=== PATIENT | female | born 1995 | race Caucasian/White ===

== ENCOUNTER 2019-04-25 10:01 | Emergency (ER) | payer OTHER ==
[~2019-04-25] VITALS: Ht 157.5 cm; Wt 98.9 kg
[2019-04-25] MEDS ORDERED: MULTTAB20 PO (10:08)
[2019-04-25] MEDS ORDERED: NS 1,000 ML IV ONE (10:45)
[2019-04-25] MEDS ORDERED: METOCLOPRAMIDE INJ 10MG/2ML VIAL (J2765) IV ONE (10:45)
[2019-04-25] MEDS ORDERED: MACR100C43 PO (12:39)
[2019-04-25] MEDS ORDERED: REGL10TA6 PO (12:39)
[2019-04-25 13:02] VITALS: BP 119/59
== END 2019-04-25 13:04 | disposition home or self-care (01) ==
LOC: M ED 10:01
DX: O21.9 Vomiting of pregnancy, unspecified (principal); O23.41 Unspecified infection of urinary tract in pregnancy, first trimester; Z3A.10 10 weeks gestation of pregnancy; Z79.899 Other long term (current) drug therapy; Z88.0 Allergy status to penicillin; Z88.2 Allergy status to sulfonamides; Z88.8 Allergy status to other drugs, medicaments and biological substances
CPT/HCPCS: 81001; 87086; 96361; 96374; 99284; J2765

== ENCOUNTER 2019-08-22 20:31 | Outpatient (CLI) | payer OTHER ==
[~2019-08-22] VITALS: Ht 157.5 cm; Wt 100.2 kg
[~2019-08-22 20:31] MED LIST: MACR100C43 PO; MULTTAB20 PO; REGL10TA6 PO
[2019-08-22 20:55] VITALS: BP 128/76
[2019-08-22 21:41] VITALS: BP 113/71
[2019-08-22] MEDS ORDERED: ASPI81TA85 PO (22:57)
--- NOTE | 2019-08-23 07:01 | HPE ---
DATE OF ADMISSION: 08/22/2019 This lady is a 23-year-old 2, para 0, 1, last menstrual period (LMP) 02/12/2019, estimated date of confinement (EDC) 11/19/2019 at 28 weeks of gestation, went to [facility] to take her blood pressure and found it to be elevated. Risk factors she has a BMI of 37.9, anxiety sufferer, midrange blood pressures and cannot rule out gestational hypertension. Also cannot rule out gestational diabetes as she did her 1-hour glucose and it was 139 and there was no followup. She could not tolerate 3-hour GTT. PAST HISTORY: In 2013 had a spontaneous . LABORATORY DATA: A positive. HIV negative. Hepatitis negative. RPR negative. Rubella immune. Varicella immune. Pap normal. Urine negative. Gonorrhea and chlamydia are negative. 1-hour glucose 139. Blood pressure presently is 113/71, respirations 18, pulse 86, temperature 98.1. Redo of blood pressure is 128/76. She has a category 1 strip. No contractions, moderate variability, baseline was normal. Symphysis fundus height is 28 weeks and bowel sounds are normal. No vaginal bleeding or discharge. No contractions are noted. No right upper quadrant pain, migraines or edema. The rest of the examination was unremarkable. Normocephalic, atraumatic. Neck full range of motion. Pupils equal and react to light. Distal pulses are symmetric. No evidence of deep vein thrombosis (DVT), pulmonary embolism (PE), or superficial phlebitis. Chest was clear bilaterally to the bases. No wheezes or rhonchi. No CVA tenderness. No rashes, lesions or pruritus. No arthralgia, myalgia. No complaint joint pain. No complaint cough, wheeze, shortness of breath or dyspnea on exertion. No frequency. No diabetic issues other than her 1-hour sugar was 139. She is not on a diet regime or on oral hypoglycemics. Our plan of management is to reassure her blood pressures are normal, monitor them in the clinic. She has had two midrange blood pressures which did not meet the criteria for gestational hypertension. Continue keeping her appointments. She was discharged undelivered. We did insurance counselor her regarding getting an appropriate blood pressure machine for herself to monitor her blood pressures, and ones that include heart rate, blood pressure and monitor if there is abnormal cardiac activity. We discharged her with the instructions she could go to [facility] and pick that up or she can continue monitoring in the clinic. The patient was discharged undelivered.
== END 2019-08-22 22:39 | disposition home or self-care (01) ==
LOC: M LDO 20:31
PROVIDERS: ATTEND Obstetrics & Gynecology
DX: O26.893 Other specified pregnancy related conditions, third trimester (principal); Z3A.28 28 weeks gestation of pregnancy; R03.0 Elevated blood-pressure reading, without diagnosis of hypertension
CPT/HCPCS: G0378; G0463

== ENCOUNTER 2019-10-25 17:22 | Outpatient (CLI) | payer OTHER ==
[~2019-10-25] VITALS: Ht 157.5 cm; Wt 105.5 kg
[~2019-10-25 17:22] MED LIST changes: +ASPI81TA85 PO
[2019-10-25 18:02] VITALS: BP 126/68
--- NOTE | 2019-10-25 18:48 | IPNPDOC ---
Text Note Date of Service The patient was seen on 10/25/19. NOTE S: Ms. Montano is a 24yo at 36+3wks by LMP who presents to LND triage with c/o decreased FM. She reports that she has not felt movement since 1100 this morning. She did contact the OB clinic triage line and used the advice they suggested, but she states that she still does not feel any movement. She denies VB/CTX/LOF. Ms. Montano's is complicated by obesity. O: VSS FHR 135, moderate variability, + accels, no decels CTX: None TAUS: + FM observed, + cardiac activity, VTX MIYA: 9.02, WNL Pt was positioned to right side during NST and she felt multiple movements. A: Reactive NST, MIYA WNL, Reassuring status P: Discharged home with PTL/danger precautions Discussed [facility] instructions f/u [id number] for next JANNY or sooner PRN Growth US scheduled for [id number] VS,Fishbone, I+O VS, Fishbone, I+O Vital Signs Date Time Temp Pulse Resp B/P (MAP) Pulse Ox O2 Delivery O2 Flow Rate FiO2 10/25/19 18:02 98.2 89 18 126/68 (87) CAMILA LUBIN CNM Oct 25, 2019 18:48
== END 2019-10-25 18:39 | disposition home or self-care (01) ==
LOC: M LDO 17:22
PROVIDERS: ATTEND Registered Nurse Maternal Newborn
DX: O36.8130 Decreased fetal movements, third trimester, not applicable or unspecified (principal); O99.210 Obesity complicating pregnancy, unspecified trimester; E66.9 Obesity, unspecified; Z3A.36 36 weeks gestation of pregnancy
CPT/HCPCS: 59025; 76815; G0378; G0463

== ENCOUNTER 2019-11-22 21:25 | Outpatient (CLI) | payer OTHER ==
[~2019-11-22] VITALS: Ht 157.5 cm; Wt 107.0 kg
[2019-11-22 21:45] VITALS: BP 125/64
[2019-11-22] MEDS ORDERED: PEPC1TAB5 PO (21:51)
[2019-11-22] MEDS ORDERED: TUMS500C PO (21:51)
--- NOTE | 2019-11-23 00:01 | HPE ---
DATE OF ADMISSION: 11/22/2019 A 24-year-old 2, para 0, abortio 1, last menstrual period (LMP) 02/12/2019, estimated date of confinement (EDC) 11/19/2019 at 40 and 3, came in with abdominal pain, was significantly severe but by 1 hour had resolved. No vaginal bleeding or loss or contractions. Risk factors: Body mass index (BMI) is 40 and she is in early term gestation. PAST HISTORY: 2014 spontaneous . LABORATORY: A positive, HIV negative, hepatitis negative, RPR negative, rubella immune, varicella immune. Pap normal. Urine negative. Gonorrhea and chlamydia are negative. 1-hour glucose was 139, her 3-hour GTT fasting was 88, 1-hour 166, 2-hour 120, and 3 hours 112. GBS is negative. On examination, no distress. Symphysis fundus height is 40, vertex. Pelvic examination: High, posterior, fingertip dilated. No vaginal bleeding or loss. Blood pressure 125/64, respirations 18, pulse 90,and temperature is 96.8. We have a lady who had intermittent abdominal pain which has resolved. Precautions were given, kick chart, premature rupture of membranes and bleeding. The patient was discharged, booked for induction of labor on Tuesday.
== END 2019-11-22 23:28 | disposition home or self-care (01) ==
LOC: M LDO 21:25
PROVIDERS: ATTEND Obstetrics & Gynecology
DX: O26.893 Other specified pregnancy related conditions, third trimester (principal); Z3A.40 40 weeks gestation of pregnancy; R10.9 Unspecified abdominal pain; O48.0 Post-term pregnancy; Z88.0 Allergy status to penicillin; Z88.2 Allergy status to sulfonamides; Z88.8 Allergy status to other drugs, medicaments and biological substances
CPT/HCPCS: 59025; G0378; G0463

== ENCOUNTER 2019-11-23 02:06 | Inpatient (IN) | payer OTHER ==
[~2019-11-23] VITALS: Ht 157.5 cm; Wt 107.0 kg
[2019-11-23] VITALS (29 sets, daily range): BP systolic 103–146; BP diastolic 56–81
[~2019-11-23 02:06] MED LIST changes: +PEPC1TAB5 PO; +TUMS500C PO
[2019-11-23] MEDS ORDERED: LACTATED RINGER'S 1000 ML IV STA (04:16)
[2019-11-23] MEDS: LR 1,000 ML IV SCH ×2 (04:50→05:17)
[2019-11-23] MEDS ORDERED: LACTATED RINGER'S 1000 ML IV ONE (06:45)
[2019-11-23 06:54] LABS: HEMATOCRIT 42.8 % (36.0-47.0); HEMOGLOBIN 13.7 g/dl (12.0-15.5); MEAN CORPUSCULAR HEMOGLOBIN 28.5 pg (27.0-33.0); PLATELET COUNT, AUTOMATED 267 10^3/uL (150-450); RED BLOOD COUNT 4.81 10^6/uL (4.00-5.40); WHITE BLOOD COUNT 15.9 10^3/uL (4.0-10.0)
[2019-11-23] MEDS ORDERED: miSOPROStol 25 MCG 1/4 TAB (S0191) PV ONE (09:00)
[2019-11-23] MEDS ORDERED: BUTORPHANOL 2 MG/ML INJ (J0595) IV PRN (10:00)
[2019-11-23] MEDS ORDERED: PROMETHAZINE INJ 25 MG/ML VIAL (J2550) IV ONE (10:00)
--- NOTE | 2019-11-23 10:16 | HPE ---
DATE OF ADMISSION: 11/23/2019 23-year-old, 2, para 2, abortus 1, last menstrual period (LMP) 02/12/2019, estimated date of confinement (EDC) 11/19/2019. She is at 40 weeks and 3 days of gestation. She was previously seen less than 24 hours ago because of abdominal pain, which subsequently resolved and she went home. She came back with more acute abdominal pain, but at this time, she said she has been trying to have a bowel movement for over an hour an a half and it is stuck and will not come out. She came in wearing a diaper because she was afraid she was going to poop. She also was having severe abdominal pain, sweating, holding her abdomen. She denied any vaginal loss or bleeding, and she denied any contractions or decreased movement. The diagnosis at that of time was that she is having obstipation requires bowel evacuation. The risk factor she has she has a BMI of greater than 40 and she is post dates of 40 and 3 of gestation. Her past history, in 2013 had a spontaneous . Labs are A+, HIV negative, hep negative, RPR negative, rubella immune. Varicella immune. Pap normal. Urine negative. Gonorrhea and chlamydia are negative. 1 hour glucose was 139. Her 3 hour GTT 86/166/120/112. GBS is negative. On examination, symphysis fundus height is 40, vertex not dilated. She has a category 2 strip and had occasional late deceleration but returned to baseline, and had some episodes of minimal variability and moderate variability requiring IV hydration and resuscitation for the baby. Blood pressure is 133/85, respirations are 18, pulse is 75 and temperature is 96.8. The rest of the examination is unremarkable. She is normocephalic, atraumatic. Neck full range of motion. Pupils equal and reactive to light. Distal pulses are symmetric. No evidence of deep venous thrombosis (DVT), pulmonary embolism (PE) or superficial phlebitis. Chest is clear bilaterally to bases. No wheezes or rhonchi. No costovertebral angle (CVA) tenderness. Abdomen soft, four quadrant bowel sounds were reduced. Category 2 strip. She has no rashes, lesions or pruritus. No arthralgia or myalgia. No complaint of joint pain. No complaint of cough, wheeze. shortness of breath or dyspnea on exertion. No nausea or vomiting. She has constipation but no diarrhea. She is not diabetic and she has no heat or cold sensitivities. 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 Past medical and surgical is noncontributory. Family history is noncontributory. She does not smoke, drink, abuse drugs or vape. She is to a soldier and there is no domestic violence. We discussed the consent for vaginal delivery and the etiology, delivery through the vagina with possible assistance of forceps or vacuum which are instruments to help deliver baby when normal pushing efforts cannot achieve delivery on their own or when delivery is needed in emergency for baby's well-being, medications that require to induce or augment labor, in order to achieve vaginal delivery episiotomy may be required to help baby deliver vaginally, you may also require repair of any lacerations or tears of the vagina or vulva that are caused with vaginal delivery, in some cases emergencies arise which we need an emergency section. The provider will discuss the reasons for emergency section and they are only done for or maternal indications. Risk of vaginal delivery include not limited bleeding, infection, injury to the vagina, pelvic structures, injury to baby, damage to the uterus, reaction to anesthesia, uterine rupture, risk of hysterectomy which is remote for intractable bleeding or , medications used to induce or augment labor, increase risk of section infection, uterine tachysystole, uterine rupture, heart rate abnormalities and the need for emergency section. There is an increased risk also of perineal and vaginal lacerations, risk of bowel or bladder incontinence, increased risk of injury to baby with bruising, scratches, hematomas of the head or intracranial bleed. The patient expressed understanding and verbalized so. We also discussed the fact that she has been required a Fleet enema in order to evacuate her bowel and after which we will evaluate the heart rate pattern. resuscitation measures include oxygen, position and IV fluids. Our impression is with a category 2 strip the possibility of the placenta being in a position where it is not able to tolerate labor and baby will demonstrate that with category 3 or nonreassuring heart tones and the possibility of having a section may be high. We also discussed the use of oxytocin as a contraction stress test in order to evaluate the integrity of the placenta for ongoing labor, with the cervix being unfavorable the possibility of Cytotec may be entertained if contraction stress test is negative. In summary, we have a late term gestation with obstipation and a category 2 heart strip.
[2019-11-23] MEDS ORDERED: FAMOTIDINE 20 MG TAB PO ONE (13:00)
[2019-11-23] MEDS ORDERED: miSOPROStol 50 MCG 1/2 TAB (S0191) PO SCH (13:00)
--- NOTE | 2019-11-23 17:44 | IPNPDOC ---
Text Note Date of Service The patient was seen on 11/23/19. NOTE Intrapartum Note I assumed care of Ebony at 0730 this morning. In brief, she is a 24yo with SIUP at 40w4d who presented overnight with difficulty effecting a BM and pain related to that. She was given an enema and had relief. However, over a period of time she was noted by Dr. Perry to have a Cat II FHRT. Given her gestational age, he made the recommendation for IOL which I began when I saw Ebony this morning around 0800. At that time SCE was 2-3/50/-2 and I performed cervical sweep and placed 25mcg cytotec PV. She then received a dose of 50mcg cytotec PO 4 hours later around 1300. Over the course of the day she has had a Cat I FHRT. She has been up to walk a few times. Presently, she notes only a feeling of some light uterine cramping. She has not requested any pain medications. Vitals are wnl, afebrile Cat I FHRT w/bl 140, +accels, -decels, mod steve Primrose: ctx q3-5min SCE: 4/75/-2, AROM performed with modest clear fluid noted Will initiate pitocin and titrate per protocol, closely observe Plan to recheck in 4-6hr or earlier as indicated Safe to proceed Dr. Olivia Eric MD VS,Tom, I+O VSTom I+O Laboratory Tests 11/23/19 04:21 Vital Signs Date Time Temp Pulse Resp B/P (MAP) Pulse Ox O2 Delivery O2 Flow Rate FiO2 11/23/19 17:01 98.1 73 18 116/60 (78) Olivia Eric MD Nov 23, 2019 17:44
[2019-11-23] MEDS ORDERED: OXYTOCIN DRIP 30 UNITS in IV 1 EA IV SCH (17:45)
[2019-11-23] MEDS ORDERED: FENTANYL 2MCG/ML ROPIVACAINE 0.2% IN 0.9% NACL 100ML IVBAG As Ordered ONE (19:41)
[2019-11-23] MEDS ORDERED: LACTATED RINGER'S 1000 ML IV PRN (19:46)
[2019-11-23] MEDS ORDERED: diphenhydrAMINE INJ 50MG/ML VIAL (J1200) IV PRN (19:46)
[2019-11-23] MEDS ORDERED: EPIDURAL/PCA KEYS XX PRN (19:46)
[2019-11-23] MEDS ORDERED: FENTANYL/ROPIVACAINE/NACL BAG 100 ML EPIDURAL SCH (19:46)
[2019-11-23] MEDS ORDERED: NALOXONE INJ 0.4 MG/1 ML VIAL (J2310) IV PRN (19:46)
[2019-11-23] MEDS ORDERED: ONDANSETRON 4MG/2ML VIAL (J2405) IV PRN (19:46)
[2019-11-23] MEDS ORDERED: ePHEDrine SULFATE 25 MG/5 ML(5MG/ML) SYRINGE IV PRN (19:46)
[2019-11-23] MEDS ORDERED: REFRIGERATOR IV KEYS XX PRN (19:46)
[2019-11-23] MEDS ORDERED: EPIDURAL COMMENT XX SCH (19:46)
[2019-11-24] VITALS (13 sets, daily range): BP systolic 99–131; BP diastolic 56–76
[2019-11-24] MEDS ORDERED: fentaNYL 100 MCG/2 ML INJECTION (J3010) As Ordered ONE (00:48)
[2019-11-24] MEDS ORDERED: LIDOCAINE 2% W/EPIN INJ 20ML **PRES FREE As Ordered ONE (00:48)
[2019-11-24] MEDS ORDERED: ONDANSETRON 4MG/2ML VIAL (J2405) As Ordered ONE (00:48)
[2019-11-24] MEDS ORDERED: AZITHROMYCIN INJ 500MG VIAL (J0456) As Ordered ONE (01:11)
[2019-11-24] MEDS ORDERED: CLINDAMYCIN 900 MG/50 ML PREMIX BAG As Ordered ONE (01:12)
[2019-11-24] MEDS ORDERED: BICITRA 30ML SOLN UDC PO ONE (01:15)
[2019-11-24] MEDS ORDERED: GENTAMICIN 160 MG in D5W 50 ML IV ONE (01:15)
[2019-11-24] MEDS ORDERED: CLINDAMYCIN 900 MG in IV 1 EA IV ONE (01:15)
[2019-11-24] MEDS ORDERED: AZITHROMYCIN INJ 500 MG, VIAL MATE ADAPTER 1 EACH in D5W 250 ML IV ONE (01:15)
[2019-11-24] MEDS ORDERED: BICITRA 30ML SOLN UDC As Ordered ONE (01:19)
[2019-11-24] MEDS ORDERED: ONDANSETRON 4MG/2ML VIAL (J2405) IV PRN ×2 (01:45→04:30)
[2019-11-24] MEDS ORDERED: diphenhydrAMINE INJ 50MG/ML VIAL (J1200) IV PRN (01:45)
[2019-11-24] MEDS ORDERED: METOCLOPRAMIDE INJ 10MG/2ML VIAL (J2765) IV PRN ×2 (01:45→04:30)
[2019-11-24] MEDS ORDERED: NALOXONE INJ 0.4 MG/1 ML VIAL (J2310) IV PRN ×2 (01:45)
[2019-11-24] MEDS ORDERED: NALBUPHINE HCL 10 MG/ML AMP (J2300) IV PRN (01:45)
[2019-11-24] MEDS ORDERED: PHENYLephrine HCL 500 MCG/5 ML (100MCG/ML) SYRINGE (J2370) As Ordered ONE (02:32)
[2019-11-24] MEDS ORDERED: MORPHINE PRES-FREE INJ 10 MG/10 ML VIAL (J2274) As Ordered ONE (02:41)
[2019-11-24] MEDS ORDERED: OXYTOCIN DRIP 30 UNITS in IV 1 EA IV SCH (03:31)
[2019-11-24] MEDS ORDERED: MEASLES,MUMPS,RUBELLA VACCINE INJ (MMR-II) (90707) SC SCH (03:45)
[2019-11-24] MEDS ORDERED: RHOGAM 300 MCG (1500 IU) INJ (J2790) IM SCH (03:45)
[2019-11-24] MEDS ORDERED: PERCOCET 5MG/325MG TAB PO PRN ×2 (03:45→04:30)
[2019-11-24] MEDS ORDERED: fentaNYL 100 MCG/2 ML INJECTION (J3010) IV PRN (04:30)
[2019-11-24] MEDS: KETOROLAC 30 MG/ML VIAL (J1885) IV SCH ×4 (04:30→22:37)
[2019-11-24] MEDS ORDERED: LR 1,000 ML IV SCH (04:30)
[2019-11-24] MEDS ORDERED: PERCOCET 5MG/325MG TAB As Ordered ONE (04:33)
[2019-11-24] MEDS ORDERED: KETOROLAC 30 MG/ML VIAL (J1885) As Ordered ONE (04:58)
[2019-11-24] MEDS: PRENATAL VITAMINS CHEWABLE TABLET PO SCH (09:00)
[2019-11-24] MEDS: PERCOCET 5MG/325MG TAB PO PRN (09:48)
--- NOTE | 2019-11-24 12:09 | IPNPDOC ---
Progress Note Date of Service: Nov 24, 2019 Day#: 0 Progress Note POD/PPD 0 SUBJECT: Ebony is a 24yo s/p uncomplicated PLTCS at 02:23 on 11/24/2019 for arrest of dilation in the setting of persistent Cat II FHRT remote from delivery while undergoing IOL for non-reassuring surveillance, doing well day # 0. EBL was 600ml. She has not yet ambulated, has sanchez catheter in place draining yellow clear urine, and she has tolerated crackers and liquids thus far. She does note feeling a bit dizzy this morning lying in bed- she thinks it may be from lack of sleep for the past two days along with all of the other changes from surgery. Breast feeding without issue. RN reports lochia is moderate, not heavy. Pain so far is well controlled with IV toradol. No f/c/n/v/CP/SOB. OBJECTIVE: VITAL SIGNS: Within normal limits, afebrile. Alert and oriented times three. Abdomen: Fundus firm at U-1. Soft, appropriately tender to palpation with NO rebound/guarding. Pfannensteil incision is covered by clean/dry optifoam d ressing. Extremities: SCDs on and functioning, no pain with palpation of calves Labs: pre-op H/H: 13.7/42.8 ASSESSMENT: Ebony is a 24yo s/p uncomplicated PLTCS at 02:23 on 11/24/2019 for arrest of dilation in the setting of persistent Cat II FHRT remote from delivery while undergoing IOL for non-reassuring surveillance, doing well day # 0. Vitals within normal limits, afebrile, hemodynamically stable with no evidence of infection. PLAN: 1. Routine and post-op care 2. Toradol (then Motrin) and prn percocet for pain. 3. Regular diet 4. Encourage breast feeding and ambulation as well as use of IS 5. CBC tomorrow morning 6. Remove sanchez catheter 12hr post-op with 4hr due to void 7. Vitals q4hr 8. Ok to shower tomorrow morning. Pt has optifoam dressing which will stay in place for [address] Olivia Eric MD VS, I&O, 24H, Fishbone Vital Signs/I&O Vital Signs Date Time Temp Pulse Resp B/P (MAP) Pulse Ox O2 Delivery O2 Flow Rate FiO2 11/24/19 10:00 98.6 91 18 99/57 (21) 97 Room Air I&O- Last 24 Hours up to 6 AM 11/24/19 06:00 Intake Total 1800 ml Output Total 2850 ml Balance -1050 ml Olivia Eric MD Nov 24, 2019 12:09
--- NOTE | 2019-11-24 12:56 | IPNPDOC ---
Text Note Date of Service The patient was seen on 11/24/19. NOTE LATE ENTRY FOR INTRAPARTUM CHARTING DUE TO BUSY L&D, CLINIC, AND CALL PAGER ON 11/23. FOR ENCOUNTER NOTE FOR TODAY, SEE PROGRESS NOTE In brief, (when I assumed care), pt was a 24yo undergoing IOL for non- reassuring surveillance (intermittent Cat I-II FHRT) at 40w3d after presenting with abdominal pain and constipation that resolved with enema. Significantly, her BMI is >40. I started her IOL with PV cytotec 25mcg for SCE of 2-3/50/-2. Over the course of the day, she received one more dose of PO cytotec 50mcg. Pitocin was initiated and amniotomy was performed at 4cm with clear fluid noted. Patient received an epidural when she progressed into active labor. IUPC was placed to assess for ctx strength in MVUs. Patient progressed to 6/80/-2, but had no further dilation or descent beyond that over >4 hr. Meanwhile, she developed a persistent Cat II FHRT with occasional variable FHR decels. Given that she was remote from delivery with the Cat II FHRT, having no improvement in her cervical exam or station, I made the recommendation for PLTCS. We went over the consent form for both PLTCS and possible blood transfusion, fully discussing all r/b/a, and both patient and I signed the consent forms. She was given 900mg IV clindamycin and 160mg IV gentamicin (for allergy-hives- to PCN) and 500mg IV azithromycin for pre-op abx prophylaxis. Dr. Neal was present to assist me for the surgery and the surgery was uncomplicated. See my dictated operative report for further details. Dr. Olivia Eric MD VSTom I+O VSTom I+O Vital Signs Date Time Temp Pulse Resp B/P (MAP) Pulse Ox O2 Delivery O2 Flow Rate FiO2 11/24/19 10:00 98.6 91 18 99/57 (71) 97 Room Air I&O- Last 24 Hours up to 6 AM 11/24/19 06:00 Intake Total 1800 ml Output Total 2850 ml Balance -1050 ml Olivia Eric MD Nov 24, 2019 12:56
[2019-11-24] MEDS: DOCUSATE SODIUM 100 MG CAP PO SCH (22:37)
[2019-11-25 02:28] VITALS: BP 123/70
[2019-11-25] MEDS: IBUPROFEN 800 MG TAB PO SCH ×2 (06:01→15:38)
[2019-11-25 06:04] VITALS: BP 117/69
[2019-11-25 06:45] LABS: HEMATOCRIT 34.5 % (36.0-47.0); HEMOGLOBIN 10.9 g/dl (12.0-15.5); MEAN CORPUSCULAR HEMOGLOBIN 28.9 pg (27.0-33.0); MEAN CORPUSCULAR HGB CONC 31.6 g/dl (32.0-36.5); MEAN CORPUSCULAR VOLUME 91.5 fl (80.0-96.0); PLATELET COUNT, AUTOMATED 204 10^3/uL (150-450); RED BLOOD COUNT 3.77 10^6/uL (4.00-5.40); WHITE BLOOD COUNT 13.4 10^3/uL (4.0-10.0)
[2019-11-25] MEDS: PRENATAL VITAMINS CHEWABLE TABLET PO SCH (08:46)
[2019-11-25] MEDS: DOCUSATE SODIUM 100 MG CAP PO SCH ×2 (08:46→19:54)
[2019-11-25 09:52] VITALS: BP 114/70
--- NOTE | 2019-11-25 10:19 | IPNPDOC ---
Progress Note Date of Service: Nov 25, 2019 Progress Note Ms. Montano is a 24 yo G1 now P1 who is POD#1 s/p uncomplicated PLTCS in the steel barrel reamer hours of 24Nov2019 for arrest of dilation and persistent Cat II FHR tracing. No acute events over the last 24 hours. Ms. Montano reports feeling well and has no complaints. She has minimal pain. She is ambulating, voiding, tolerating a regular diet, and has minimal lochia. Vitals - VSS, afebrile, normotensive, non tachycardic General - AAOX3, sitting up in bed, NAD, pleasant and conversant Abdomen - Fundus firm at U-2. No tenderness to palpation. Optifoam dressing in place over incision. Clean and dry. Extremities - Minimal edema UO - appropriate Labs: Post op H/H stable Ms. Montano is doing well this AM and is making an appropriate / postoperative recovery. Continue ambulating, IS use, and routine care. Anticipate DC home tomorrow. All patient questions answered. Yaw Cunningham DO VS, I&O, 24H, Tom Vital Signs/I&O Vital Signs Date Time Temp Pulse Resp B/P (MAP) Pulse Ox O2 Delivery O2 Flow Rate FiO2 11/25/19 09:52 97.3 82 20 114/70 (85) 98 Room Air I&O- Last 24 Hours up to 6 AM 11/25/19 05:59 Intake Total 1600 ml Output Total 2150 ml Balance -550 ml Laboratory Data 24H LABS Laboratory Tests 2 11/25/19 06:29: Nucleated Red Blood Cells % (auto) 0.0 CBC/BMP Laboratory Tests 11/25/19 06:29 YAW CUNNINGHAM DO Nov 25, 2019 10:19
[2019-11-25] MEDS: PERCOCET 5MG/325MG TAB PO PRN (12:01)
[2019-11-25 14:00] VITALS: BP 111/64
[2019-11-25 17:53] VITALS: BP 118/58
[2019-11-25 22:13] VITALS: BP 134/74
[2019-11-26] MEDS: IBUPROFEN 800 MG TAB PO SCH ×2 (00:16→07:37)
[2019-11-26 02:00] VITALS: BP 137/73
[2019-11-26 06:00] VITALS: BP 128/71
[2019-11-26] MEDS: PRENATAL VITAMINS CHEWABLE TABLET PO SCH (09:42)
[2019-11-26] MEDS: DOCUSATE SODIUM 100 MG CAP PO SCH (09:42)
--- NOTE | 2019-11-26 10:48 | IPNPDOC ---
Progress Note Date of Service: Nov 26, 2019 Day#: 2 Progress Note POD/PPD 2 SUBJECT: Ebony is a 24yo s/p uncomplicated PLTCS at 02:23 on 11/24/2019 for arrest of dilation in the setting of persistent Cat II FHRT remote from delivery while undergoing IOL for non-reassuring surveillance, doing well day # 2. EBL was 600ml. She is ambulating without lightheadedness/dizziness, spontaneously voiding without difficulty, and she is tolerating regular diet. Passing flatus. Breast feeding without issue. Minimal lochia. Pain is well controlled. No f/c/n/v/CP/SOB. OBJECTIVE: VITAL SIGNS: Within normal limits, afebrile. Alert and oriented times three. Abdomen: Fundus firm at U-2. Soft, appropriately tender to palpation with NO rebound/guarding. Pfannensteil incision is covered by clean/dry optifoam dressing. Extremities: SCDs on and functioning, no pain with palpation of calves Labs: pre-op H/H: 13.7/42.8 post-op H/H: 10.9/34.5 ASSESSMENT: Ebony is a 24yo s/p uncomplicated PLTCS at 02:23 on 11/14 for arrest of dilation in the setting of persistent Cat II FHRT remote from delivery while undergoing IOL for non-reassuring surveillance, doing well day # 2. Vitals within normal limits, afebrile, hemodynamically stable with no evidence of infection. PLAN: 1. discharge to home today 2. Motrin q8hr and prn percocet for pain. 3. Regular diet 4. Encouraged breast feeding and ambulation 5. Keep incision clean and dry, remove optifoam dressing and steri strips in 1 week 6. Vaginal rest 6 weeks and no heavy lifting, no driving while taking percocet 7. Discussed return precautions at length 8. Next visit 2 weeks post-op with Dr. Eric in [facility] Dr. Olivia Eric MD VS, I&O, 24H, Fishbone Vital Signs/I&O Vital Signs Date Time Temp Pulse Resp B/P (MAP) Pulse Ox O2 Delivery O2 Flow Rate FiO2 11/26/19 06:00 97.1 77 18 128/71 (90) 11/25/19 17:53 99 11/25/19 09:52 Room Air Olivia Eric MD Nov 26, 2019 10:48
[2019-11-26] MEDS ORDERED: IBUP80TA PO (10:50)
[2019-11-26] MEDS ORDERED: PERCOCET PO (10:50)
[2019-11-26] MEDS ORDERED: DOCU100C16 PO (10:50)
--- NOTE | 2019-11-26 11:05 | DS.PDOC ---
Discharge Summary General Date of Admission Nov 23, 2019 at 06:28 Date of Discharge Nov 26, 2019 Attending Physician: Olivia Eric MD Discharge Summary PROCEDURES PERFORMED DURING STAY: primary low transverse section ADMITTING DIAGNOSES: 1. Constipation with pain 2. Non-reassuring surveillance DISCHARGE DIAGNOSES: 1. Constipation with pain 2. Non-reassuring surveillance 3. Arrest of dilation in the setting of persistent Category II FHRT COMPLICATIONS/CHIEF COMPLAINT: Abdominal Pain. HISTORY OF PRESENT ILLNESS/HOSPITAL COURSE: Ebony is a 24yo s/p uncomplicated PLTCS at 02:23 on 11/24/2019 for arrest of dilation in the setting of persistent Cat II FHRT remote from delivery while undergoing IOL for non-reassuring surveillance, doing well day # 2. She has had a benign post-operative course. At time of discharge, her vitals were within normal limits, she was afebrile, hemodynamically stable with no evidence of infection. OBJECTIVE: VITAL SIGNS: Within normal limits, afebrile. Alert and oriented times three. Abdomen: Fundus firm at U-2. Soft, appropriately tender to palpation with NO rebound/guarding. Pfannensteil incision is covered by clean/dry optifoam dressing. Extremities: SCDs on and functioning, no pain with palpation of calves Labs: pre-op H/H: 13.7/42.8 post-op H/H: 10.9/34.5 DISCHARGE MEDICATIONS: Please see below. ALLERGIES: Please see below. DISCHARGE PLAN/Instructions: 1. discharge to home today 2. Motrin q8hr and prn percocet for pain. 3. Regular diet 4. Encouraged breast feeding and ambulation 5. Keep incision clean and dry, remove optifoam dressing and steri strips in 1 week 6. Vaginal rest 6 weeks and no heavy lifting, no driving while taking percocet 7. Discussed return precautions at length 8. Next visit 2 weeks post-op with Dr. Eric in [facility] clinic DISPOSITION: Home DISCHARGE CONDITION: Stable TIME SPENT ON DISCHARGE: Greater than [address] Olivia Eric MD Vital Signs/I&Os Vital Signs Date Time Temp Pulse Resp B/P (MAP) Pulse Ox O2 Delivery O2 Flow Rate FiO2 11/26/19 06:00 97.1 77 18 128/71 (90) 11/25/19 17:53 99 11/25/19 09:52 Room Air Discharge Medications Scheduled Calcium Carbonate (Tums) 200 Mg Tab.chew, 2 TAB PO QID for cough and congestion, (Reported) Docusate Sodium (Docusate Sodium) 100 Mg Capsule, 100 MG PO BID Famotidine (Pepcid) 20 Mg Tablet, 1 TAB PO BID, (Reported) Ibuprofen (Ibuprofen) 800 Mg Tablet, 800 MG PO Q8H No122/Iron/Folic Acid ( Multi Tablet) 1 Each Tablet, 1 TAB PO DAILY, (Reported) Scheduled PRN Oxycodone/Acetaminophen (Oxycodone-Acetaminophen 5-325) 1 Each Tablet, 2 TAB PO Q6H PRN for SEVERE PAIN (PS 8-10) Allergies Coded Allergies: Penicillins (Verified Allergy, Mild, hives, 04/25/19) Sulfa (Sulfonamide Antibiotics) (Verified Allergy, Mild, hives, 04/25/19) Uncoded Allergies: yeast drugs (Allergy, Mild, hives, 04/25/19) Olivia Eric MD Nov 26, 2019 11:05
--- NOTE | 2019-11-26 16:43 | RO ---
DATE OF PROCEDURE: 11/24/2019 PREPROCEDURE DIAGNOSES: 1. Induction of labor secondary to non-reassuring surveillance. 2. Obesity. POSTPROCEDURE DIAGNOSES: 1. Induction of labor secondary to non-reassuring surveillance. 2. Obesity. 3. Persistent category 2 heart rate tracing remote from delivery with inability to augment and arrest of dilation. PROCEDURE: Primary low transverse section. SURGEON: Olivia Eric MD CUSTOMER SALES CONSULTANT: Dr. Jagjit Neal CLINICAL SERVICE: Obstetrics. ANESTHESIA: INDICATION FOR OPERATION: Ebony is a 24-year-old 1, now para 1-0-0-1 who underwent induction of labor at 40 weeks 5 days for an intermittent category 1 to 2 heart rate tracing when she was evaluated on labor and delivery for abdominal pain that was related to severe constipation. She was given an enema, and her pain completely resolved. But based on the heart rate tracing, it was recommended that she undergo delivery. The patient underwent induction with vaginal Cytotec and then oral Cytotec, as well as augmentation with Pitocin. However, the patient progressed to 6 cm, but the fetus never descended any lower than -2 station, and she began to develop a persistent category 2 heart rate tracing remote from delivery in the setting of likely arrest of dilation. MATERIAL FORWARDED TO THE LAB FOR EXAMINATION: None. DESCRIPTION OF FINDINGS: Female infant in cephalic presentation, scores 7 and 9. Weight 3370 grams or 7 pounds 7 ounces. Fallopian tubes were normal in appearance. The ovaries seem to have some reactive changes, potentially related to endometriosis and then the uterine fundus and the anterior uterus were normal in appearance, but the posterior aspect of the uterus also had reactive changes that were potentially related to endometriosis but no obvious adhesions, though the changes on the posterior aspect of the uterus may have been related to adhesions that released as the uterus grew out of the pelvis in the setting of endometriosis. INFECTION CLASSIFICATION: 2. ESTIMATED BLOOD LOSS: 600 mL. INTRAVENOUS FLUIDS: 2000 mL of lactated Ringer's. URINE OUTPUT: 300 mL. DESCRIPTION OF OPERATION: After obtaining informed consent, the patient was taken to the operating room. She already had an epidural in place during labor, and a Carnes catheter and bilateral sequential compression devices were also in place. She was prepped and draped in the normal sterile fashion in the dorsal supine position with a left lateral tilt. Time-out was performed to confirm patient name, date of , procedure and indication, and the team was in agreement. Ebony has an allergy to penicillin, so she was given 160 mg of IV gentamicin, 900 mg of IV clindamycin, as well as 500 mg of IV azithromycin. Epidural anesthesia was found to be adequate using an Allis clamp. A Pfannenstiel skin incision was made with a scalpel and carried through to the underlying layer of fascia. Fascia was incised in the midline, and the incision was extended laterally with Ta scissors. Superior and inferior aspects of the fascial incision were grasped with Bill clamps, elevated and the underlying rectus muscles were dissected off bluntly and sharply. Peritoneum was entered digitally, and the rectus muscles were in the midline. Peritoneal incision was extended superiorly and inferiorly with good visualization of the bladder. Bladder blade was inserted, and the vesicouterine peritoneum was identified, grasped with pickups and entered sharply with Metzenbaum scissors. Incision was extended laterally, and a bladder flap was created digitally. A Mobius self-retaining retractor was inserted into the abdomen, and the lower uterine segment was scored in transverse fashion with a scalpel. The uterus was entered bluntly, and the incision was extended with traction. Infant's head was elevated to the level of the incision. Fundal pressure was applied, head was delivered atraumatically in the occiput-anterior (OA) position. Anterior shoulder, posterior shoulder and corpus were delivered without difficulty. Notable there was a loose nuchal cord times one. The nose and mouth were suctioned with bulb suction, cord was clamped times two and cut. The infant was handed off to the awaiting nursing team. The placenta was then removed with uterine massage and traction on the umbilical cord. The self-retaining Mobius retractor was removed at that point because we were having difficulty with exteriorizing the uterus and having good visualization. So, after the Mobius was removed, we then exteriorized the uterus again and cleared the uterus of all blood clot and debris. The uterine incision was repaired with #0 Vicryl suture in a running locking fashion. A second layer of #0 Monocryl suture was used to close the hysterotomy incision in an imbricating fashion. The uterine incision was inspected. Hemostasis was noted. Posterior cul-de-sac was irrigated. Uterus was returned to the abdomen. The gutters were cleared of all clots and irrigated with hemostasis noted. Peritoneum was closed using #3-0 Vicryl suture in a running fashion, rectus muscles were reapproximated with three interrupted sutures using #0 Vicryl. The fascia was reapproximated using #0 Vicryl suture in a running fashion. Subcutaneous tissue was then irrigated. The Cruzito's fascia was reapproximated using #3-0 Vicryl suture in interrupted fashion. Skin edges were reapproximated using three inverted interrupted stitches using #3-0 Vicryl suture, followed by a running subcuticular stitch using #4-0 Monocryl suture. Incision was cleaned using a wet lap dried with a dry lap. Steri-Strips were applied in the usual fashion perpendicular to Pfannenstiel incision. At that point, we placed an Optifoam dressing over the incision. All counts were correct times two. Procedure was without complications. The patient tolerated the procedure well. She was taken to the recovery room on labor and delivery in stable condition.
== END 2019-11-26 13:26 | disposition home or self-care (01) | DRG 773 ==
LOC: M LDO 02:06 → M LDI 06:28 → M OBS 11-24 05:55
PROVIDERS: ADMIT Obstetrics & Gynecology; ATTEND Obstetrics & Gynecology
PROC: 3E0P7GC Introduction of Other Therapeutic Substance into Female Reproductive, Via Natural or Artificial Opening (ICD-10-PCS; 2019-11-23)
PROC: 10907ZC Drainage of Amniotic Fluid, Therapeutic from Products of Conception, Via Natural or Artificial Opening (ICD-10-PCS; 2019-11-23)
PROC: 10D00Z1 Extraction of Products of Conception, Low, Open Approach (ICD-10-PCS; principal; 2019-11-24 01:45)
DX: O48.0 Post-term pregnancy (principal); Z3A.40 40 weeks gestation of pregnancy; Z37.0 Single live birth; O99.214 Obesity complicating childbirth; E66.9 Obesity, unspecified; O62.0 Primary inadequate contractions; O76 Abnormality in fetal heart rate and rhythm complicating labor and delivery; Z88.0 Allergy status to penicillin; O69.81X0 Labor and delivery complicated by cord around neck, without compression, not applicable or unspecified

== ENCOUNTER 2019-12-06 23:08 | Emergency (ER) | payer OTHER ==
[~2019-12-06] VITALS: Ht 157.5 cm; Wt 99.5 kg
[~2019-12-06 23:08] MED LIST changes: +DOCU100C16 PO; +IBUP80TA PO; +PERCOCET PO
[2019-12-06] MEDS ORDERED: MILKSUS3 PO (23:36)
[2019-12-07] MEDS ORDERED: NS 1,000 ML IV ONE (00:15)
[2019-12-07] MEDS ORDERED: PANTOPRAZOLE 40MG INJ (PROTONIX) (C9113) IV ONE (00:15)
[2019-12-07 00:57] LABS: BASO # 0.1 10^3/uL (0.0-0.2); BASO % 0.5 % (0.0-1.0); EOS # 0.1 10^3/uL (0.0-0.5); EOS % 0.7 % (0.0-3.0); HEMOGLOBIN 12.6 g/dl (12.0-15.5); LYMPH # 2.2 10^3/uL (1.5-5.0); LYMPH % 20.9 % (24.0-44.0); MEAN CORPUSCULAR HEMOGLOBIN 28.4 pg (27.0-33.0); MEAN CORPUSCULAR HGB CONC 32.3 g/dl (32.0-36.5); MONO # 0.4 10^3/uL (0.0-0.8); MONO % 3.4 % (0.0-5.0); NEUTROPHILS # 7.8 10^3/uL (1.5-8.5); NEUTROPHILS % 74.1 % (36.0-66.0); PLATELET COUNT, AUTOMATED 383 10^3/uL (150-450); RED BLOOD COUNT 4.43 10^6/uL (4.00-5.40); WHITE BLOOD COUNT 10.5 10^3/uL (4.0-10.0)
[2019-12-07 01:09] LABS: BLOOD UREA NITROGEN 15 MG/DL (7-18); CALCIUM LEVEL 9.3 MG/DL (8.5-10.1); CARBON DIOXIDE LEVEL 27 MEQ/L (21-32); CHLORIDE LEVEL 104 MEQ/L (98-107); CK-MB VALUE MASS < 1.0 NG/ML (<3.6); CPK CREATINE PHOSPHOKINASE 49 U/L (26-192); CREATININE FOR GFR 0.87 MG/DL (0.55-1.30); GLOMERULAR FILTRATION RATE > 60.0 (>60); GLUCOSE, FASTING 152 MG/DL (70-100); MB/CK RELATIVE INDEX 2.04 (< OR =4); POTASSIUM SERUM 3.5 MEQ/L (3.5-5.1); SODIUM LEVEL 138 MEQ/L (136-145); TROPONIN I < 0.02 NG/ML (< 0.10)
[2019-12-07] MEDS ORDERED: ISOVUE-370 76% 100ML VIAL (Q9967) As Ordered ONE (01:14)
--- NOTE | 2019-12-07 02:09 | REPVR ---
PROCEDURE INFORMATION: Exam: CT Angiography Chest With Contrast Exam date and time: 12/07/2019 12:04 AM Age: 24 years old Clinical indication: Chest pain; Type not specified; Patient HX: Recent ; Additional info: R/O pe TECHNIQUE: Imaging protocol: Computed tomographic angiography of the chest with intravenous contrast. 3D rendering: MIP and/or 3D reconstructed images were created by the technologist. Radiation optimization: All CT scans at this facility use at least one of these dose optimization techniques: automated exposure control; mA and/or kV adjustment per patient size (includes targeted exams where dose is matched to clinical indication); or iterative reconstruction. Contrast material: ISO; Contrast volume: 75 ml; Contrast route: AC; COMPARISON: No relevant prior studies available. FINDINGS: Pulmonary arteries: The main pulmonary artery measures 25 mm. No pulmonary embolism is identified. Aorta: The ascending thoracic aorta measures 24 mm. Lungs: Minimal bilateral lower lobe dependent atelectasis. Pleural space: Unremarkable. No pneumothorax. No pleural effusion. Heart: Unremarkable. No cardiomegaly. No pericardial effusion. Mediastinum: There is soft tissue conforming to the anterior mediastinum consistent with residual thymic tissue. Lymph nodes: Unremarkable. No enlarged lymph nodes. Bones/joints: Unremarkable. No acute fracture. Soft tissues: Unremarkable. IMPRESSION: Negative CTA chest. No pulmonary embolism is identified. Electronically signed by: Bentley Boone On 12/07/2019 02:09:34 AM
[2019-12-07] MEDS ORDERED: PROT1TAB2 PO (03:15)
[2019-12-07 03:31] VITALS: BP 119/62
--- NOTE | 2019-12-07 20:25 | ECGEPIP ---
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
[2019-12-08] MEDS ORDERED: PANT-23 PO (21:07)
[2019-12-08] MEDS ORDERED: OXYC1TAB23 PO (21:07)
== END 2019-12-07 03:30 | disposition home or self-care (01) ==
LOC: M ED 23:08
DX: K21.9 Gastro-esophageal reflux disease without esophagitis (principal); Z79.899 Other long term (current) drug therapy; Z88.0 Allergy status to penicillin; Z88.1 Allergy status to other antibiotic agents; Z88.2 Allergy status to sulfonamides; Z91.048 Other nonmedicinal substance allergy status
CPT/HCPCS: 71275; 80048; 82550; 82553; 84484; 85025; 93005; 93041; 94760; 96361; 96374; 99284; C9113; Q9967

== ENCOUNTER 2019-12-08 19:07 | Inpatient (IN) | payer OTHER ==
[~2019-12-08] VITALS: Ht 157.5 cm; Wt 97.6 kg
[~2019-12-08 19:07] MED LIST changes: +MILKSUS3 PO; +PROT1TAB2 PO
[2019-12-08] MEDS ORDERED: KETOROLAC 30 MG/ML VIAL (J1885) IV ONE (19:45)
[2019-12-08] MEDS ORDERED: NS 1,000 ML IV ONE (19:45)
[2019-12-08] MEDS ORDERED: ONDANSETRON 4MG/2ML VIAL (J2405) IV ONE (19:45)
[2019-12-08 20:23] LABS: BASO # 0.1 10^3/uL (0.0-0.2); BASO % 0.6 % (0.0-1.0); EOS # 0.2 10^3/uL (0.0-0.5); EOS % 1.5 % (0.0-3.0); HEMATOCRIT 40.8 % (36.0-47.0); LYMPH # 2.2 10^3/uL (1.5-5.0); LYMPH % 19.7 % (24.0-44.0); MEAN CORPUSCULAR HEMOGLOBIN 28.4 pg (27.0-33.0); MEAN CORPUSCULAR HGB CONC 31.9 g/dl (32.0-36.5); MEAN CORPUSCULAR VOLUME 89.1 fl (80.0-96.0); MONO # 0.6 10^3/uL (0.0-0.8); MONO % 5.6 % (0.0-5.0); NEUTROPHILS # 7.9 10^3/uL (1.5-8.5); NEUTROPHILS % 72.1 % (36.0-66.0); PLATELET COUNT, AUTOMATED 402 10^3/uL (150-450); RED BLOOD COUNT 4.58 10^6/uL (4.00-5.40)
[2019-12-08 20:29] LABS: ALBUMIN 3.6 GM/DL (3.2-5.2); BILIRUBIN,DIRECT 0.4 MG/DL (0.0-0.2); BILIRUBIN,TOTAL 0.6 MG/DL (0.2-1.0); TOTAL PROTEIN 7.5 GM/DL (6.4-8.2)
--- NOTE | 2019-12-08 20:29 | REPVR ---
PROCEDURE INFORMATION: Exam: US Abdomen Limited, Right Upper Quadrant Exam date and time: 12/08/2019 8:12 PM Age: 24 years old Clinical indication: Abdominal pain; Epigastric; Additional info: Ruq pain TECHNIQUE: Imaging protocol: Real-time ultrasound of the abdomen with image documentation. Examination was focused on the right upper quadrant. COMPARISON: No relevant prior studies available. FINDINGS: Liver: There is uniform echogenicity through the liver and no evidence of intrahepatic biliary dilatation. The liver measures 16.5 cm in length. Gallbladder: There is a positive Montgomery sign. There is sludge and numerous small calcified gallstones in the dependent portion of the gallbladder with posterior shadowing. The gallbladder wall measures approximately 2 mm. There is no evidence of fluid along the margin of the gallbladder. Common bile duct: The common bile duct measures 6 mm in top-normal in size. Pancreas: Normal pancreas. Right kidney: The right kidney measures 10.3 cm in length and there is no evidence of hydronephrosis. IMPRESSION: 1. Positive Montgomery sign with right upper quadrant tenderness. 2. Sludge in numerous gravel-like gallstones in the dependent portion of the gallbladder. Correlation with a HIDA scan should be considered. Electronically signed by: Lauri Rosales On 12/08/2019 20:28:51 PM
[2019-12-08] MEDS ORDERED: PANT-23 PO (21:07)
[2019-12-08] MEDS ORDERED: OXYC1TAB23 PO (21:07)
[2019-12-08] MEDS ORDERED: MORPHINE 4 MG/ML 1ML VIAL/SYRINGE (J2270) IV PRN (23:15)
[2019-12-08] MEDS ORDERED: MORPHINE 2 MG/ML 1ML VIAL (J2270) IV PRN (23:15)
[2019-12-08] MEDS ORDERED: MORPHINE 4 MG/ML 1ML VIAL/SYRINGE (J2270) IV ONE (23:15)
[2019-12-08] MEDS: CIPROFLOXACIN 400 MG in IV 1 EA IV SCH (23:36)
[2019-12-08] MEDS: NS 1,000 ML IV SCH (23:37)
[2019-12-09] VITALS (7 sets, daily range): BP systolic 107–125; BP diastolic 63–78
[2019-12-09] MEDS: metroNIDAZOLE 500 MG in IV 1 EA IV SCH ×3 (00:45→15:36)
[2019-12-09] MEDS: NS 1,000 ML IV SCH ×2 (07:44→15:36)
[2019-12-09 07:55] LABS: ALBUMIN 2.8 GM/DL (3.2-5.2); ALT/SGPT 160 U/L (12-78); BILIRUBIN,TOTAL 0.7 MG/DL (0.2-1.0); BLOOD UREA NITROGEN 9 MG/DL (7-18); CALCIUM LEVEL 8.2 MG/DL (8.5-10.1); CARBON DIOXIDE LEVEL 26 MEQ/L (21-32); CHLORIDE LEVEL 112 MEQ/L (98-107); CREATININE FOR GFR 0.78 MG/DL (0.55-1.30); GLOMERULAR FILTRATION RATE > 60.0 (>60); GLUCOSE, FASTING 85 MG/DL (70-100); POTASSIUM SERUM 3.8 MEQ/L (3.5-5.1); SODIUM LEVEL 143 MEQ/L (136-145); TOTAL PROTEIN 6.5 GM/DL (6.4-8.2)
[2019-12-09 08:58] LABS: LIPASE 76 U/L (73-393)
[2019-12-09 09:12] LABS: HEMATOCRIT 37.4 % (36.0-47.0); HEMOGLOBIN 11.5 g/dl (12.0-15.5); MEAN CORPUSCULAR HGB CONC 30.7 g/dl (32.0-36.5); MEAN CORPUSCULAR VOLUME 91.2 fl (80.0-96.0); PLATELET COUNT, AUTOMATED 317 10^3/uL (150-450); WHITE BLOOD COUNT 6.5 10^3/uL (4.0-10.0)
[2019-12-09] MEDS: CIPROFLOXACIN 400 MG in IV 1 EA IV SCH ×2 (10:59→23:31)
--- NOTE | 2019-12-09 12:33 | REP ---
MRCP: 12/09/2019. Clinical history: Elevated LFTs without elevated bilirubin. Cholelithiasis. Evaluate for distal common duct stone. Comparison: Gallbladder ultrasound 12/08/2019. Technique: Coronal T2 and axial fat suppressed T2 sequences with thick slab MIP heavily T2-weighted coronal sequences rotated about the longitudinal axis of the body. 3-D volume acquisition and gradient echo, heavily T2-weighted sequence and MRCP reconstructions rotated about the longitudinal axis of the abdomen. Findings: The coronal T2 thick slab coronal images, dedicated fat suppressed axial T2 images and the 3-D gradient echo images all show a 4 mm stone in the distal common duct, less than a centimeter from the ampulla. The remainder of the intrapancreatic portion of the common duct into the margarita hepatis showed no filling defects of persistence. The right and left intrahepatic ducts are intact. The gallbladder showed numerous tiny stones layered in its dependent portion. Pancreas grossly intact. The liver and spleen are without focal lesion. Kidneys and adrenal glands visible were unremarkable. Impression: 1. A 4 mm stone in the distal common duct less than a centimeter from the ampulla. No other definite filling defects. Common duct diameter up to 6 mm. No intrahepatic ductal dilatation. 2. Innumerable small gallstones within the dependent gallbladder. No other significant finding. The images were discussed with the requesting surgeon at the workstation. Electronically Signed by Devante Allen MD 12/09/2019 08:25 P
--- NOTE | 2019-12-09 16:02 | HPE ---
DATE OF ADMISSION: 12/08/2019 BRIEF HISTORY OF PRESENT ILLNESS: The patient is 24-year-old female who had some gastrointestinal (GI) issues, abdominal pain issues, just prior to her delivery and underwent a (C) section for some obstipation, constipation issues, with some generalized abdominal pain and pressure. She essentially underwent this two weeks ago and after that, she had done well for a few days, but then developed some recurrence of abdominal pain over the last week, with some progression of pain that brought her back to the emergency room and was and was diagnosed with some possible gastroesophageal (GE) reflux symptoms. She was treated for this and returns again with increasing pain, discomfort all across the upper abdomen. She has not had any fevers or chills. Some nausea without vomiting. No diarrhea. Her workup in the emergency room included CT angiography to rule out pulmonary embolism post delivery. No evidence of abnormality was appreciated. Thus, given her abdominal pain across the upper abdomen, the reflux symptoms previously, she ordered to have a gallbladder ultrasound, which revealed positive Montgomery sign with some gallstones. No evidence of cholecystitis was appreciated on the ultrasound. No evidence of pericholecystic fluid and the gallbladder wall was not edematous. The patient did have some slightly elevated liver function tests with an AST and alkaline phosphatase elevated. No evidence of elevated lipase or bilirubin or direct bilirubin. I was asked to admit her for additional treatment. PAST MEDICAL HISTORY: 1. History of gastroesophageal reflux disease. 2. History of tonsillectomy/adenoidectomy. MEDICATIONS: Include: - vitamins - pantoprazole - She was given pain medication as well at her last discharge. PHYSICAL EXAMINATION: Reveals a 24-year-old female who looks stated age. HEENT: Reveals an atraumatic, normocephalic head with extraocular movements intact. Pupils are equal and reactive to light. Sclerae nonicteric. Oropharynx clear without exudate or lesions. NECK: Supple without adenopathy. LUNGS: Clear to auscultation without crackles, wheezes or rhonchi. HEART: Regular without murmur. ABDOMEN: Softly distended, mildly tender in the upper abdomen without significant guarding, rebound or peritoneal signs, although she has some mild discomfort with palpation in the upper abdomen/right upper quadrant area. After the patient was admitted to the hospital overnight, the patient's labs were reordered for this morning and revealed a normalizing white count and an increasing liver function test. Concern for a possible common bile duct stone was entertained and an magnetic resonance cholangiopancreatography (MRCP) was obtained, which revealed indeed a common bile duct stone, as well as multiple stones within the gallbladder. IMPRESSION AND PLAN: Patient originally admitted overnight with cholecystitis as the diagnosis, but indeed has evidence of choledocholithiasis. We will consult GI and as for them to evaluate for possible endoscopic retrograde cholangiopancreatography (ERCP). However, we will keep her nothing by mouth, intravenous (IV) fluids, IV antibiotics and plan on operative intervention prior to discharge, depending on her overall progress/symptoms and when her ERCP is performed, if necessary.
--- NOTE | 2019-12-09 18:23 | CR.PDOC ---
General Date of Consultation: Dec 09, 2019 Referring Provider: Rey Mendoza Jr Attending Physician: ANTONIO CHAUDHARY MD Consultation Primary physician/ hospitalist: -Dr. Mendoza Reason for consult: -Bile duct stones. HPI: 24-year-old female patient with recent and delivery around 2 weeks ago, presented with epigastric and right upper quadrant abdominal pain with nausea and vomiting, aggravated with meals and lying on the right-sided, recurrent episodes were the past few weeks. Patient had abnormal liver tests and MRI showing CBD stone. GI was consulted for the same. Patient reports having moderate to severe upper abdominal pain associated with nausea, currently improved with pain medication. Pertinent negative GI symptoms: Patient denies fever, sick contacts, recent travel, loss of appetite, early satiety or unintentional weight loss. No history of hematemesis, melena or hematochezia. Patient reports regular bowel movements. Review of Systems: GI: as stated above CVS: No chest pain, No palpitations, No leg swelling. RS: No Shortness of breath, No Wheezing, no cough DECAL DECORATOR: No dizziness, No motor weakness, No sensory problems Hematology: No bruising, No gum bleeding, Musculoskeletal: No joint pain, ambulating well. Skin: No rash : No hematuria, No burning sensation of the urine ENT: No ear discharge/ pain, No dysphagia. Eyes: No photophobia. Jaundice Home medications: reviewed. Antithrombotic agents: -None Medical h/o: As above. Surgical h/o: None on abdomen. Social h/o: Alcohol: Denies , smoking: Denies , IVDA/ drugs: Denies. Family h/o of GI cancers - None Prior Endoscopies: none. Prior GI evaluations: - None Exam: Vitals: reviewed General: Alert and oriented x 3, not in distress HEENT: NO pallor, no icterus. Normal oropharynx, NO cervical lymph nodes. Chest: symmetric with bilateral clear air entry, CVS: S1, S2 heard, normal, no murmurs . Abdomen: non-distended, no surgical scars, soft, non-tender at the time of exam, no palpable masses, normal bowel sounds heard. Rectal exam: Patient refused / Deferred at this time. Extremities: no pedal edema, pulses palpable. DECAL DECORATOR: no focal motor or sensory deficits. Moves all extremities Skin: no rash. Labs: reviewed. Imaging: reviewed. Impression: - Recurrent epigastric and right upper quadrant abdominal pain, with abnormal liver tests, Ultrasound abdomen showing gallstones, MRI showing CBD stones. Likely symptomatic gallstones and CBD stones. Recommendations: - Patient educated about the test results, possible differential diagnoses and All questions answered. - Clear liquid diet for now. - NPO after 8 AM tomorrow. - Patient is educated aobut the ERCP. The procedure, its indications, risks (acute pancreatitis, its complications, bleeding, perforation, infection, hypotension, respiratory depression, allergy, need for endotracheal intubation, surgery, colostomy, cardiac arrest, even ), benefits, limitations (e.g., missing a lesion), and all other alternatives (including no intervention) were explained to the patient who understood and agreed for the procedure. - Cholescytectomy as per surgery team. Plan of care discussed with patient and primary team. Patient verbalized understanding and agreed with the plan. Vital Signs/I&O Vital Signs Date Time Temp Pulse Resp B/P (MAP) Pulse Ox O2 Delivery O2 Flow Rate FiO2 12/09/19 16:00 99.3 66 18 124/78 (93) 97 Room Air I&O- Last 24 Hours up to 6 AM 12/09/19 06:00 Intake Total 1200 ml Output Total 900 ml Balance 300 ml Laboratory Data CBC/BMP Laboratory Tests 12/08/19 19:59 12/09/19 06:49 12/09/19 06:53 Allergies Coded Allergies: Yeast (Verified Allergy, Intermediate, HIVES W/YEAST DRUGS, 12/07/19) tioconazole (Verified Allergy, Intermediate, Hives, 12/08/19) Penicillins (Verified Allergy, Mild, hives, 04/25/19) Sulfa (Sulfonamide Antibiotics) (Verified Allergy, Mild, hives, 04/25/19) Home Medications Scheduled Pantoprazole Sodium (Pantoprazole Sodium) 40 Mg Tablet.dr, 40 MG PO DAILY, (Reported) No122/Iron/Folic Acid ( Multi Tablet) 1 Each Tablet, 1 TAB PO DAILY, (Reported) Scheduled PRN Oxycodone HCl/Acetaminophen (Oxycodone-Acetaminophen 5-325) 1 Each Tablet, 1 TAB PO QID PRN for pain, (Reported) ANTONIO CHAUDHARY MD Dec 09, 2019 18:23
[2019-12-10] VITALS (8 sets, daily range): BP systolic 108–133; BP diastolic 59–94
[2019-12-10] MEDS: metroNIDAZOLE 500 MG in IV 1 EA IV SCH ×3 (00:54→15:30)
[2019-12-10] MEDS: NS 1,000 ML IV SCH ×3 (05:13→23:09)
[2019-12-10 07:39] LABS: ALBUMIN 2.8 GM/DL (3.2-5.2); ALT/SGPT 104 U/L (12-78); BILIRUBIN,TOTAL 0.4 MG/DL (0.2-1.0); BLOOD UREA NITROGEN 7 MG/DL (7-18); CALCIUM LEVEL 8.3 MG/DL (8.5-10.1); CARBON DIOXIDE LEVEL 27 MEQ/L (21-32); CHLORIDE LEVEL 111 MEQ/L (98-107); CREATININE FOR GFR 0.73 MG/DL (0.55-1.30); GLOMERULAR FILTRATION RATE > 60.0 (>60); GLUCOSE, FASTING 89 MG/DL (70-100); POTASSIUM SERUM 3.6 MEQ/L (3.5-5.1); SODIUM LEVEL 143 MEQ/L (136-145); TOTAL PROTEIN 6.2 GM/DL (6.4-8.2)
[2019-12-10] MEDS: CIPROFLOXACIN 400 MG in IV 1 EA IV SCH ×2 (12:05→23:22)
[2019-12-10] MEDS ORDERED: LIDOCAINE 2% INJ 100 MG/5 ML SDV (FOR ANES.) As Ordered ONE (17:27)
[2019-12-10] MEDS ORDERED: ROCURONIUM BROMIDE 50 MG/5 ML VIAL As Ordered ONE (17:27)
[2019-12-10] MEDS ORDERED: SUGAMMADEX SODIUM 500 MG/5 ML VIAL (BRIDION) As Ordered ONE (17:27)
[2019-12-10] MEDS ORDERED: propofoL 200 MG/20 ML VIAL As Ordered ONE (17:27)
[2019-12-10] MEDS ORDERED: ONDANSETRON 4MG/2ML VIAL (J2405) As Ordered ONE (17:28)
[2019-12-10] MEDS ORDERED: dexameTHASONE 4 MG/ML 1ML VIAL (J1100) As Ordered ONE (17:28)
[2019-12-10] MEDS ORDERED: fentaNYL 100 MCG/2 ML INJECTION (J3010) As Ordered ONE (17:28)
[2019-12-10] MEDS ORDERED: MIDAZOLAM INJ 2 MG/2 ML VIAL (J2250) As Ordered ONE (17:28)
--- NOTE | 2019-12-10 19:49 | ROOR ---
Patient Name: Ebony Montano Procedure Date: 12/10/2019 6:27 PM Date of : 1995 Age: 24 Gender: Female Note Status: Finalized Procedure: ERCP Indications: Bile duct stone(s), Abnormal MRCP Providers: Dami Godwin MD Referring MD: Rey Mendoza Jr, MD Requesting Provider: Medicines: Monitored Anesthesia Care Complications: No immediate complications. Procedure: Pre-Anesthesia Assessment: - Prior to the procedure, a History and Physical was performed, and patient medications and allergies were reviewed. The patient is competent. The risks and benefits of the procedure and the sedation options and risks were discussed with the patient. All questions were answered and informed consent was obtained. Patient identification and proposed procedure were verified by the physician, the nurse and the anesthesiologist in the procedure room. Mental Status Examination: alert and oriented. Airway Examination: normal oropharyngeal airway and neck mobility. Respiratory Examination: clear to auscultation. CV Examination: normal. Prophylactic Antibiotics: The patient does not require prophylactic antibiotics. Prior Anticoagulants: The patient has taken no previous anticoagulant or antiplatelet agents. ASA Grade Assessment: II - A patient with mild systemic disease. After reviewing the risks and benefits, the patient was deemed in satisfactory condition to undergo the procedure. The anesthesia plan was to use monitored anesthesia care (MAC). Immediately prior to administration of medications, the patient was re-assessed for adequacy to receive sedatives. The heart rate, respiratory rate, oxygen saturations, blood pressure, adequacy of pulmonary ventilation, and response to care were monitored throughout the procedure. The physical status of the patient was re-assessed after the procedure. The Duodenoscope was introduced through the mouth, and advanced to the duodenum and used to inject contrast into the bile duct. The ERCP was accomplished without difficulty. The patient tolerated the procedure well. Findings: The activities aide film was normal. The esophagus was successfully intubated under direct vision. The scope was advanced to a normal major papilla in the descending duodenum without detailed examination of the pharynx, larynx and associated structures, and upper GI tract. The upper GI tract was grossly normal. A 0.035 inch x 260 cm straight Hydra Jagwire was passed into the biliary tree. The short-nosed traction sphincterotome was passed over the guidewire and the bile duct was then deeply cannulated. Contrast was injected. I personally interpreted the bile duct images. Ductal flow of contrast was adequate. Image quality was suboptimal. Contrast extended to the entire biliary tree. The lower third of the main bile duct contained filling defect(s) thought to be a stone and sludge. A 3 mm biliary sphincterotomy was made with a monofilament traction (standard) sphincterotome using ERBE electrocautery (due to small papilla, could not make adequate cut). There was no post-sphincterotomy bleeding. The biliary tree was swept with a 9 mm balloon starting at the bifurcation. Sludge was swept from the duct. One 8.5 Fr by 5 cm plastic stent with a single external flap and a single internal flap was placed 4 cm into the common bile duct. Bile flowed through the stent. The stent was in good position. Pancreatic duct was neither cannulated nor opacified. Impression: - A filling defect consistent with a stone and sludge was seen on the cholangiogram. - The examination was suspicious for choledocholithiasis. Complete removal was accomplished by biliary sphincterotomy and balloon extraction. - A biliary sphincterotomy was performed. - The biliary tree was swept and sludge was found. - One plastic stent was placed into the common bile duct. (due to small papilla, could not make adequate cut). Recommendation: - The patient will be observed post-procedure, until all discharge criteria are met. - Patient has a contact number available for emergencies. The signs and symptoms of potential delayed complications were discussed with the patient. Return to normal activities tomorrow. Written discharge instructions were provided to the patient. - Return patient to hospital aceves for ongoing care. - Avoid aspirin and nonsteroidal anti-inflammatory medicines. - Clear liquid diet for 1 day, then advance as tolerated to high fiber diet. - Refer to a surgeon as previously scheduled for consideration of cholecystectomy. - Repeat ERCP in 6 weeks to remove stent. - Return to GI clinic in [facility] (address [address], [address], [place] [address]) in 4 -- 6 weeks. Please call GI clinic @ [phone] for apppointment date and time. - Return to primary care physician. Dami Godwin MD Dami Godwin MD 12/10/2019 7:49:36 PM Electronically signed by Dami Godwin MD Number of Addenda: 0 Note Initiated On: 12/10/2019 6:27 PM Estimated Blood Loss: Estimated blood loss was minimal.
[2019-12-10] MEDS ORDERED: oxyCODONE 5MG TAB PO PRN (20:00)
[2019-12-10] MEDS ORDERED: ONDANSETRON 4MG/2ML VIAL (J2405) IV PRN (20:00)
[2019-12-10] MEDS ORDERED: fentaNYL 100 MCG/2 ML INJECTION (J3010) IV PRN (20:00)
[2019-12-10] MEDS ORDERED: HYDROMORPHONE HCL 0.5 MG/ 0.5 ML SYRINGE (J1170 PER 1) IV PRN (20:00)
[2019-12-10] MEDS ORDERED: LR 1,000 ML IV SCH (20:00)
[2019-12-10] MEDS ORDERED: LR 1,000 ML IV ONE (20:00)
[2019-12-11] VITALS (10 sets, daily range): BP systolic 109–132; BP diastolic 53–73
[2019-12-11] MEDS: metroNIDAZOLE 500 MG in IV 1 EA IV SCH ×3 (00:29→16:19)
[2019-12-11 07:39] LABS: ALBUMIN 3.1 GM/DL (3.2-5.2); ALT/SGPT 77 U/L (12-78); BILIRUBIN,TOTAL 0.4 MG/DL (0.2-1.0); BLOOD UREA NITROGEN 7 MG/DL (7-18); CALCIUM LEVEL 8.8 MG/DL (8.5-10.1); CARBON DIOXIDE LEVEL 26 MEQ/L (21-32); CHLORIDE LEVEL 108 MEQ/L (98-107); GLOMERULAR FILTRATION RATE > 60.0 (>60); GLUCOSE, FASTING 91 MG/DL (70-100); POTASSIUM SERUM 3.9 MEQ/L (3.5-5.1); SODIUM LEVEL 141 MEQ/L (136-145); TOTAL PROTEIN 6.8 GM/DL (6.4-8.2)
--- NOTE | 2019-12-11 08:13 | IPN ---
DATE: 12/10/2019 The patient overall feeling much better this morning. Noticed some pains intermittently overnight. However, liver function tests (LFTs) seemed to have dropped a little bit today. She overall appears comfortable in bed. Her abdomen is soft, nontender, nondistended. IMPRESSION AND PLAN: The patient overall is doing well, has an endoscopic retrograde cholangiopancreatography (ERCP) planned for later on today and will plan for operative intervention tomorrow with a laparoscopic cholecystectomy unless some significant abnormality is appreciated, but otherwise, the patient would like to proceed with operative intervention while she is still in the hospital. Thus, we will add her to the schedule tomorrow and plan on laparoscopic cholecystectomy. She understands the risks as well as benefits associated with this.
[2019-12-11] MEDS: NS 1,000 ML IV SCH ×2 (08:52→19:49)
[2019-12-11] MEDS: CIPROFLOXACIN 400 MG in IV 1 EA IV SCH ×2 (12:56→23:36)
[2019-12-11] MEDS ORDERED: BUPIVACAINE/EPIN 0.25% 30 ML VIAL As Ordered ONE (14:37)
[2019-12-11] MEDS ORDERED: fentaNYL 250 MCG/5 ML INJECTION (J3010) As Ordered ONE (14:45)
[2019-12-11] MEDS ORDERED: ROCURONIUM BROMIDE 50 MG/5 ML VIAL As Ordered ONE (14:46)
[2019-12-11] MEDS ORDERED: propofoL 200 MG/20 ML VIAL As Ordered ONE ×2 (14:46→16:37)
[2019-12-11] MEDS ORDERED: MIDAZOLAM INJ 2 MG/2 ML VIAL (J2250) As Ordered ONE (14:46)
[2019-12-11] MEDS ORDERED: ONDANSETRON 4MG/2ML VIAL (J2405) As Ordered ONE (14:46)
[2019-12-11] MEDS ORDERED: dexameTHASONE 4 MG/ML 1ML VIAL (J1100) As Ordered ONE ×2 (14:46→16:12)
[2019-12-11] MEDS ORDERED: LIDOCAINE 2% INJ 100 MG/5 ML SDV (FOR ANES.) As Ordered ONE (14:46)
[2019-12-11] MEDS ORDERED: KETOROLAC 60 MG/2 ML VIAL (J1885) As Ordered ONE (14:46)
[2019-12-11] MEDS ORDERED: ACETAMINOPHEN 1000MG 100ML IV BTL (OFIRMEV) (J0131 PER 10MG) As Ordered ONE (14:53)
--- NOTE | 2019-12-11 15:07 | REP ---
C-ARM VIEWS DURING ERCP: Multiple C-arm views are performed during ERCP exam. Common bile duct is catheterized. Contrast is injected. Catheter manipulation is performed. A stent is placed bridging the ampulla of Vater. Fluoroscopy time is 38 seconds. Electronically Signed by Johnnie Franklin MD 12/12/2019 01:48 P
[2019-12-11] MEDS ORDERED: metroNIDAZOLE/NACL 500MG(5MG/ML)100 ML BAG (S0030) As Ordered ONE (16:17)
[2019-12-11] MEDS ORDERED: KETOROLAC 30 MG/ML VIAL (J1885) IV PRN (16:30)
[2019-12-11] MEDS ORDERED: SUGAMMADEX SODIUM 500 MG/5 ML VIAL (BRIDION) As Ordered ONE (16:37)
[2019-12-11] MEDS ORDERED: NORCO, ANEXSIA 5/325MG TABLET (HYDROcodone/ACETAMINOPHEN) PO PRN ×2 (17:00)
[2019-12-11] MEDS ORDERED: oxyCODONE 5MG TAB As Ordered ONE (17:10)
[2019-12-11] MEDS ORDERED: METOCLOPRAMIDE INJ 10MG/2ML VIAL (J2765) IV PRN (17:30)
[2019-12-11] MEDS ORDERED: fentaNYL 100 MCG/2 ML INJECTION (J3010) IV PRN (17:30)
[2019-12-11] MEDS ORDERED: ONDANSETRON 4MG/2ML VIAL (J2405) IV PRN (17:30)
[2019-12-11] MEDS ORDERED: HYDROMORPHONE HCL 0.5 MG/ 0.5 ML SYRINGE (J1170 PER 1) IV PRN (17:30)
[2019-12-11] MEDS ORDERED: oxyCODONE 5MG TAB PO PRN (17:30)
[2019-12-11] MEDS ORDERED: LR 1,000 ML IV SCH ×2 (17:30)
[2019-12-11] MEDS: KETOROLAC 30 MG/ML VIAL (J1885) IV PRN (23:37)
[2019-12-12] VITALS: BP 125/65
[2019-12-12] MEDS: metroNIDAZOLE 500 MG in IV 1 EA IV SCH ×2 (00:52→07:41)
[2019-12-12 04:00] VITALS: BP 121/81
[2019-12-12] MEDS: NS 1,000 ML IV SCH (05:47)
[2019-12-12] MEDS: KETOROLAC 30 MG/ML VIAL (J1885) IV PRN (05:55)
[2019-12-12 07:46] LABS: ALBUMIN 2.9 GM/DL (3.2-5.2); ALT/SGPT 61 U/L (12-78); BILIRUBIN,TOTAL 0.3 MG/DL (0.2-1.0); BLOOD UREA NITROGEN 9 MG/DL (7-18); CALCIUM LEVEL 8.5 MG/DL (8.5-10.1); CARBON DIOXIDE LEVEL 28 MEQ/L (21-32); CHLORIDE LEVEL 107 MEQ/L (98-107); CREATININE FOR GFR 0.76 MG/DL (0.55-1.30); GLOMERULAR FILTRATION RATE > 60.0 (>60); GLUCOSE, FASTING 93 MG/DL (70-100); POTASSIUM SERUM 3.5 MEQ/L (3.5-5.1); SODIUM LEVEL 139 MEQ/L (136-145); TOTAL PROTEIN 6.2 GM/DL (6.4-8.2)
[2019-12-12 08:00] VITALS: BP 103/60
--- NOTE | 2019-12-24 15:10 | RO ---
DATE OF PROCEDURE: 12/08/2019 PREOPERATIVE DIAGNOSIS: Acute cholecystitis. POSTOPERATIVE DIAGNOSIS: Acute cholecystitis. PROCEDURE: Laparoscopic cholecystectomy. SURGEON: Rey Mendoza MD BRAKE LINING FINISHER ASBESTOS: ANESTHESIA: General endotracheal anesthesia. ESTIMATED BLOOD LOSS: Minimal. FLUIDS: Crystalloid. BRIEF PROCEDURE SUMMARY: The patient was brought to the operating room, was given general anesthesia. After adequate anesthesia and preoperative antibiotics were given, the patient was prepped and draped in the usual sterile fashion. Next, a supraumbilical incision was made with skin knife. Blunt dissection was carried down to fascia. Fascia was grasped, elevated and a Veress needle placed into the abdominal cavity insufflated to 15 mm of pressure. A dilating 10 mm trocar was placed at this time and under direct visualization an epigastric and two lateral trocars were placed. The gallbladder was grasped, retracted superiorly and there was some mild inflammation of the gallbladder wall, edema of the gallbladder wall which was scored on the lateral aspect across the anterior portion of the neck of the gallbladder. Once this was cleared and dissected off, the neck of the gallbladder/cystic duct area could be well visualized. The cystic artery was well visualized. This was surrounded with a hook cautery and then a window behind the neck of the gallbladder was created using some blunt dissection as well as the hook cautery. Eventually, once this was created nicely, the cystic artery was clipped proximally, distally and transected. The cystic duct, which had been previously identified, was even better identified after mobilizing medially and laterally a little bit more and then this was clipped proximally ,distally and transected. The gallbladder was removed from the gallbladder bed, placed in an Endo Catch bag and brought out through the umbilicus. #0 Vicryl was used close the fascia at the umbilicus after the right upper quadrant was copiously irrigated until clear, and all trocars were closed with #4-0 Vicryl. Steri-Strips and a dry sterile dressing was applied. The patient was awakened, extubated, brought to recovery room awake, alert and hemodynamically stable. Sponge and needle counts correct times two.
--- NOTE | 2019-12-24 15:15 | DSES ---
DATE OF ADMISSION: 12/08/2019 DATE OF DISCHARGE: 12/12/2019 PRINCIPAL DIAGNOSIS: Gallstones and common bile duct stones as well as cholecystitis. ASSOCIATED DIAGNOSIS: History of gastroesophageal (GE) reflux, history of tonsillectomy, adenoidectomy. BRIEF HISTORY OF PRESENT ILLNESS: The patient is a 24-year-old female who presents with some abdominal pain issues that brought her back to the emergency room over the last couple of weeks a few times, first for possible GE reflux symptoms and then after severe pain and brought her back and CT angiography was performed she returned with right upper quadrant pain and tenderness in the right upper quadrant all consistent with cholecystitis. The patient was admitted with some slightly elevated liver function tests and the diagnosis of acute cholecystitis. HOSPITAL COURSE SUMMARY: The patient was admitted with the above diagnosis, but the following day she ended up having some increased liver function tests and thus an MRI was performed of the gallbladder/common bile duct which indeed showed a common bile duct stone and thus Dr. Godwin was consulted for a possible ERCP. He did bring her to the operating room where she underwent an ERCP on 12/10. She continued to have some nice progress over the ensuing 24-48 hours and then was brought to the operating room where she underwent laparoscopic cholecystectomy. Postoperatively she was discharged on 12/12 with Vicodin, Protonix and vitamins as her medications. She was to followup in my office in 1-2 weeks. Followup with gastrointestinal (GI) in approximately 3-4 weeks.
== END 2019-12-12 10:50 | disposition home or self-care (01) | DRG 769 ==
LOC: M ED 19:07 → M ED INP 23:09 → ENRESERV 12-09 00:06 → M PED 12-09 00:50
PROVIDERS: ADMIT Surgery; ATTEND Surgery
PROC: 0FC98ZZ Extirpation of Matter from Common Bile Duct, Via Natural or Artificial Opening Endoscopic (ICD-10-PCS; 2019-12-10)
PROC: 0F798DZ Dilation of Common Bile Duct with Intraluminal Device, Via Natural or Artificial Opening Endoscopic (ICD-10-PCS; 2019-12-10)
PROC: 0FT44ZZ Resection of Gallbladder, Percutaneous Endoscopic Approach (ICD-10-PCS; principal; 2019-12-11 16:40)
DX: O99.63 Diseases of the digestive system complicating the puerperium (principal); K80.62 Calculus of gallbladder and bile duct with acute cholecystitis without obstruction; K21.9 Gastro-esophageal reflux disease without esophagitis; Z79.899 Other long term (current) drug therapy

== ENCOUNTER 2020-02-05 09:45 | Day surgery (SDC) | payer OTHER ==
[~2020-02-05] VITALS: Ht 157.5 cm; Wt 99.2 kg
[~2020-02-05 09:45] MED LIST changes: +LIDOCAINE 1% MDV 20ML VIAL SQ PRN; +LR 1,000 ML IV ONE; +NORA0.35 PO; +NS 1,000 ML IV ONE; +OXYC1TAB23 PO; +PANT-23 PO; +SUGAMMADEX SODIUM 500 MG/5 ML VIAL (BRIDION) As Ordered ONE
[2020-02-05] MEDS ORDERED: PREN29TA4 PO (10:10)
[2020-02-05] MEDS ORDERED: LIDOCAINE 2% INJ 100 MG/5 ML SDV (FOR ANES.) As Ordered ONE (12:59)
[2020-02-05] MEDS ORDERED: propofoL 200 MG/20 ML VIAL As Ordered ONE (12:59)
[2020-02-05] MEDS ORDERED: MIDAZOLAM INJ 2 MG/2 ML VIAL (J2250) As Ordered ONE (12:59)
[2020-02-05] MEDS ORDERED: ROCURONIUM BROMIDE 50 MG/5 ML VIAL As Ordered ONE (12:59)
[2020-02-05] MEDS ORDERED: ONDANSETRON 4MG/2ML VIAL (J2405) As Ordered ONE (13:00)
[2020-02-05] MEDS ORDERED: fentaNYL 100 MCG/2 ML INJECTION (J3010) As Ordered ONE (13:00)
[2020-02-05] MEDS ORDERED: dexameTHASONE 4 MG/ML 1ML VIAL (J1100) As Ordered ONE (13:00)
[2020-02-05] MEDS ORDERED: ISOVUE-300 61% 50ML VIAL (Q9967) As Ordered ONE (13:54)
--- NOTE | 2020-02-05 15:13 | REP ---
Clinical: Common bile duct stent removal. Technique: Intraoperative fluoroscopic imaging using portable C-arm technique from the ERCP examination. Findings: Multiple images demonstrate relatively normal appearance to the common bile duct and visualized contrast-filled intrahepatic biliary ducts. No significant ductal dilatation is appreciated and no obvious filling defects or contour abnormalities are identified. Evidence of prior cholecystectomy noted. Total fluoroscopic time 21 seconds. Impression: No evidence for biliary ductal dilatation, obstruction or obvious abnormality. Electronically Signed by Duy Olivas MD 02/05/2020 03:05 P
[2020-02-05] MEDS ORDERED: fentaNYL 100 MCG/2 ML INJECTION (J3010) IV PRN (15:15)
[2020-02-05] MEDS ORDERED: MEPERIDINE INJ 25 MG/ML VIAL (J2175) IV PRN (15:15)
[2020-02-05] MEDS ORDERED: ONDANSETRON 4MG/2ML VIAL (J2405) IV PRN (15:15)
[2020-02-05] MEDS ORDERED: METOCLOPRAMIDE INJ 10MG/2ML VIAL (J2765) IV PRN (15:15)
[2020-02-05] MEDS ORDERED: LR 1,000 ML IV SCH (15:15)
[2020-02-05] MEDS ORDERED: PERCOCET 5MG/325MG TAB PO PRN (15:15)
--- NOTE | 2020-02-05 15:16 | ROOR ---
Patient Name: Ebony Montano Procedure Date: 02/05/2020 2:13 PM Date of : 1995 Age: 24 [facility] Gender: Female Note Status: Finalized Procedure: ERCP Indications: Common bile duct stone(s), Biliary stent removal Providers: Dami Godwin MD Referring MD: JÚNIOR CALLEJAS MD Requesting Provider: Medicines: Monitored Anesthesia Care Complications: No immediate complications. Procedure: Pre-Anesthesia Assessment: - Prior to the procedure, a History and Physical was performed, and patient medications and allergies were reviewed. The patient is competent. The risks and benefits of the procedure and the sedation options and risks were discussed with the patient. All questions were answered and informed consent was obtained. Patient identification and proposed procedure were verified by the physician, the nurse and the anesthesiologist in the procedure room. Mental Status Examination: alert and oriented. Airway Examination: normal oropharyngeal airway and neck mobility. Respiratory Examination: clear to auscultation. CV Examination: normal. Prophylactic Antibiotics: The patient does not require prophylactic antibiotics. Prior Anticoagulants: The patient has taken no previous anticoagulant or antiplatelet agents. ASA Grade Assessment: II - A patient with mild systemic disease. After reviewing the risks and benefits, the patient was deemed in satisfactory condition to undergo the procedure. The anesthesia plan was to use monitored anesthesia care (MAC). Immediately prior to administration of medications, the patient was re-assessed for adequacy to receive sedatives. The heart rate, respiratory rate, oxygen saturations, blood pressure, adequacy of pulmonary ventilation, and response to care were monitored throughout the procedure. The physical status of the patient was re-assessed after the procedure. The Duodenoscope was introduced through the mouth, and advanced to the duodenum and used to inject contrast into the bile duct. The ERCP was accomplished without difficulty. The patient tolerated the procedure well. Findings: A founder and chief executive officer film of the abdomen was obtained. Surgical clips, consistent with previous cholecystectomy, were seen in the area of the right upper quadrant of the abdomen. One stent ending in the main bile duct was seen. The esophagus was successfully intubated under direct vision. The scope was advanced from the mouth to the duodenum. The pharynx, larynx and associated structures, as well as the upper GI tract, were normal. One biliary stent originating in the biliary tree was emerging from the major papilla. The stent was visibly patent. A biliary sphincterotomy had been performed. The sphincterotomy appeared open. One stent was removed from the biliary tree using a snare. A 0.035 inch x 260 cm straight Hydra Jagwire was passed into the biliary tree. The short-nosed traction sphincterotome was passed over the guidewire and the bile duct was then deeply cannulated. Contrast was injected. I personally interpreted the bile duct images. Ductal flow of contrast was adequate. Image quality was adequate. Contrast extended to the entire biliary tree. The lower third of the main bile duct contained filling defect(s) thought to be sludge. Biliary sphincterotomy was made with a monofilament traction (standard) sphincterotome using ERBE electrocautery. There was no post-sphincterotomy bleeding. The biliary tree was swept with a 9 mm balloon starting at the bifurcation. Sludge was swept from the duct. Occlusion cholangiogram at the end of the procedure did not show any residual filling defects. Pancreatic duct was neither cannulated nor opacified. Impression: - One visibly patent stent from the biliary tree was seen in the major papilla. - Prior biliary sphincterotomy appeared open. - The examination was suspicious for sludge. - One stent was removed from the biliary tree. - A biliary sphincterotomy was performed. - The biliary tree was swept and sludge was found. - Occlusion cholangiogram at the end of the procedure did not show any residual filling defects. Pancreatic duct was neither cannulated nor opacified. Recommendation: - Avoid aspirin and nonsteroidal anti-inflammatory medicines. - The patient will be observed post-procedure, until all discharge criteria are met. - Patient has a contact number available for emergencies. The signs and symptoms of potential delayed complications were discussed with the patient. Return to normal activities tomorrow. Written discharge instructions were provided to the patient. - Full liquid diet today, then advance as tolerated to high fiber diet. - Telephone GI clinic if symptomatic today. - Return to primary care physician. Dami Godwin MD Dami Godwin MD 02/05/2020 3:16:01 PM Electronically signed by Dami Godwin MD Number of Addenda: 0 Note Initiated On: 02/05/2020 2:13 PM Estimated Blood Loss: Estimated blood loss: none.
[2020-02-05 15:45] VITALS: BP 109/63
== END 2020-02-05 16:24 | disposition home or self-care (01) ==
LOC: M SDC 09:45
PROVIDERS: ATTEND Internal Medicine Gastroenterology
DX: Z46.59 Encounter for fitting and adjustment of other gastrointestinal appliance and device (principal); K80.50 Calculus of bile duct without cholangitis or cholecystitis without obstruction; K21.9 Gastro-esophageal reflux disease without esophagitis; Z88.0 Allergy status to penicillin; Z88.2 Allergy status to sulfonamides; Z88.8 Allergy status to other drugs, medicaments and biological substances; Z79.899 Other long term (current) drug therapy
CPT/HCPCS: 43262; 43264; 43275; 74330; 81025; J1100; J2250; J2405; J3010; Q9967